=== PATIENT | female | born 1955 | race African-American/Black ===

== ENCOUNTER 2016-09-24 21:59 | Emergency (ER) | payer MEDICAID ==
[~2016-09-24] VITALS: Ht 165.1 cm; Wt 78.0 kg
[~2016-09-24 21:59] MED LIST: ATOR10TA PO; ATOR20TA42 PO; CEPH500C3 PO; CLOP75 PO; GLIM1 PO; LISI40TA PO; METF-324 PO; TOPR25TA2 PO
[2016-09-24 22:02] VITALS: BP 184/80; PULSE 96; RESP 20; TEMP 98.4; O2SAT 96
== END 2016-09-24 23:30 | disposition left against medical advice (07) ==
LOC: NED 21:59
DX: R68.89 Other general symptoms and signs (principal)
CPT/HCPCS: 99281